=== PATIENT | male | born 1975 | race Caucasian/White ===

== ENCOUNTER 2020-11-20 14:50 | Emergency (ER) | payer SELFPAY ==
[2020-11-20 16:27] LABS: ALT (SGPT) 22 U/L (8-55); AST (SGOT) 21 U/L (5-34); Albumin 3.9 g/dL (3.5-5.0); Alkaline Phosphatase 72 U/L (40-110); Anion Gap 16 mmol/L (10-20); BUN (Urea Nitrogen) 13 mg/dL (8.9-20.6); Bilirubin, Total 0.6 mg/dL (0.2-1.2); Calc. Creatinine Clearance 0 mL/min (70-130); Calcium 8.6 mg/dL (7.8-10.44); Carbon Dioxide 24 mmol/L (22-29); Chloride 104 mmol/L (98-107); Globulin 2.4 g/dL (2.4-3.5); Glucose 111 mg/dL (70-105); Potassium 4.8 mmol/L (3.5-5.1); Protein, Total 6.3 g/dL (6.0-8.3); Sodium 139 mmol/L (136-145)
[2020-11-20 16:35] LABS: #Eosinphils 0.1 10x3/uL (0.0-0.5); #Monocytes 0.8 10x3/uL (0.0-1.1); #Neutrophils 9.3 10x3/uL (1.5-8.4); %Basophils 0.4 % (0.0-2.0); %Eosinophils 0.5 % (0.0-6.0); %Lymphocytes 8.8 % (18.0-47.0); %Monocytes 7.1 % (0.0-10.0); %Neutrophils 82.8 % (40.0-75.0); Hemoglobin 15.9 g/dL (13.5-17.5); Mean Corpuscular Hemoglobin 31.6 pg (27.0-33.0); Mean Corpuscular Volume 92.8 fl (81.2-95.1); Mean Platelet Volume 9.6 fl (7.4-10.4); Platelet Count 269 10x3/uL (150-450); RBC Distribution Width 12.8 % (11.5-14.5); Red Blood Cell (RBC) Count 5.03 10x6/uL (4.32-5.72); White Blood Cell (WBC) Count 11.2 10x3/uL (3.5-10.5)
[2020-11-20] MEDS ORDERED: Ibuprofen 200 MG TAB ONE (16:55)
[2020-11-20] MEDS ORDERED: Acetaminophen 500 MG TAB ONE (16:56)
[2020-11-20 19:24] LABS: Troponin I Less than 0.010 ng/mL (< 0.028)
[2020-11-20 20:11] LABS: SARS-CoV-2 NAA Rapid Test Not Detected (NotDetected)
== END 2020-11-20 20:00 | disposition home or self-care (01) ==
LOC: CSHERS 14:50
DX: R50.9 Fever, unspecified (principal); R07.9 Chest pain, unspecified; Z20.822 Contact with and (suspected) exposure to COVID-19
CPT/HCPCS: 0240U; 36415; 71045; 80053; 83605; 84484; 85025; 87040; 93005

== ENCOUNTER → 2021-11-12 | Emergency (ER) | payer MEDICARE | LOC: CSHERS 18:41 | DX: Z53.21 Procedure and treatment not carried out due to patient leaving prior to being seen by health care provider (principal) ==

== ENCOUNTER 2022-07-29 22:36 | Emergency (ER) | payer MEDICARE, SELFPAY ==
[2022-07-29] MEDS ORDERED: Ketorolac Tromethamine 30 MG/ML VIAL ONE (22:58)
[2022-07-29] MEDS ORDERED: Lorazepam 2 MG/ML VIAL ONE (22:58)
[2022-07-29 23:09] LABS: #Eosinphils 0.2 10x3/uL (0.0-0.5); #Monocytes 1.1 10x3/uL (0.0-1.1); #Neutrophils 5.8 10x3/uL (1.5-8.4); %Basophils 0.4 % (0.0-2.0); %Eosinophils 1.3 % (0.0-6.0); %Lymphocytes 37.3 % (18.0-47.0); %Monocytes 9.6 % (0.0-10.0); %Neutrophils 51.1 % (40.0-75.0); Hemoglobin 14.8 g/dL (13.5-17.5); Mean Corpuscular HGB CONC 34.2 g/dL (32.0-36.0); Mean Corpuscular Hemoglobin 31.3 pg (27.0-33.0); Mean Corpuscular Volume 91.5 fl (81.2-95.1); Mean Platelet Volume 9.3 fl (7.4-10.4); Platelet Count 301 10x3/uL (150-450); RBC Distribution Width 12.3 % (11.5-14.5); Red Blood Cell (RBC) Count 4.73 10x6/uL (4.32-5.72); White Blood Cell (WBC) Count 11.2 10x3/uL (3.5-10.5)
[2022-07-29] MEDS ORDERED: Mag-Al Plus 1200 MG/1200 MG/120 MG/30 ML UDCUP ONE (23:21)
[2022-07-29] MEDS ORDERED: Lidocaine Viscous Sol 2% 15 ml UD Cup ONE (23:21)
[2022-07-29 23:22] LABS: ALT (SGPT) 31 U/L (8-55); AST (SGOT) 29 U/L (5-34); Albumin 3.7 g/dL (3.5-5.0); Alkaline Phosphatase 68 U/L (40-110); Anion Gap 16 mmol/L (10-20); BUN (Urea Nitrogen) 14 mg/dL (8.9-20.6); Bilirubin, Total 0.6 mg/dL (0.2-1.2); Calc. Creatinine Clearance 0 mL/min (70-130); Calcium 9.6 mg/dL (7.8-10.44); Carbon Dioxide 28 mmol/L (22-29); Chloride 104 mmol/L (98-107); Estimated GFR 107; Globulin 2.3 g/dL (2.4-3.5); Glucose 133 mg/dL (70-105); Lipase 44 U/L (8-78); Potassium 5.4 mmol/L (3.5-5.1); Sodium 143 mmol/L (136-145)
[2022-07-30 02:22] LABS: Troponin I Less than 0.010 ng/mL (< 0.028)
== END 2022-07-30 02:36 | disposition home or self-care (01) ==
LOC: CSHERS 22:36
DX: R07.9 Chest pain, unspecified (principal)
CPT/HCPCS: 36415; 71045; 80053; 83690; 84484; 85025; 85379; 93005; 96374; 96375; J1885; J2060

== ENCOUNTER 2022-08-29 08:13 | Day surgery (SDC) | payer MEDICARE ==
[2022-08-26 14:16] VITALS: BMI 29.4
[2022-08-29] MEDS ORDERED: PROPOFOL 40 ML ONE (11:27)
[2022-08-29] MEDS ORDERED: Lidocaine 1% PF 5 ML VIAL ONE (11:39)
[2022-08-29] MEDS ORDERED: ePHEDrine Sulfate 50 MG/10 ML VIAL ONE (13:47)
[2022-08-29] MEDS ORDERED: PHENYLEPHRINE-NS 100 MCG/ML 10 ML SYRINGE ONE (13:49)
[2022-08-29] MEDS ORDERED: Albuterol HFA (OR) 200 PUFF INH ONE (13:52)
== END 2022-08-29 12:28 | disposition home or self-care (01) ==
LOC: CSHSDC 08:13
PROVIDERS: ATTEND Internal Medicine Gastroenterology
PROC: 0DB48ZX Excision of Esophagogastric Junction, Via Natural or Artificial Opening Endoscopic, Diagnostic (ICD-10-PCS; principal; 2022-08-29)
PROC: 0DBP8ZZ Excision of Rectum, Via Natural or Artificial Opening Endoscopic (ICD-10-PCS; 2022-08-29)
DX: K57.31 Diverticulosis of large intestine without perforation or abscess with bleeding (principal); D12.8 Benign neoplasm of rectum; K44.9 Diaphragmatic hernia without obstruction or gangrene; K21.00 Gastro-esophageal reflux disease with esophagitis, without bleeding; K64.9 Unspecified hemorrhoids; I10 Essential (primary) hypertension; F32.A Depression, unspecified; I48.91 Unspecified atrial fibrillation; Z88.5 Allergy status to narcotic agent; Z79.899 Other long term (current) drug therapy
CPT/HCPCS: 88305; J2704

== ENCOUNTER 2022-12-16 12:18 | Outpatient (CLI) | payer MEDICARE | END 2022-12-16 12:19 | disposition home or self-care (01) | LOC: CSHCT 12:18 | PROVIDERS: ATTEND Orthopaedic Surgery | DX: M25.571 Pain in right ankle and joints of right foot (principal); Z96.7 Presence of other bone and tendon implants ==

== ENCOUNTER 2024-01-26 17:02 | Emergency (ER) | payer MEDICARE ==
[2024-01-26 18:02] LABS: #Basophils 0.04 10x3/uL (0.0-0.2); #Monocytes 0.89 10x3/uL (0.0-1.1); #Neutrophils 5.24 10x3/uL (1.5-8.4); %Basophils 0.4 % (0.0-2.0); %Eosinophils 1.1 % (0.0-6.0); %Lymphocytes 32.3 % (18.0-47.0); %Monocytes 9.6 % (0.0-10.0); %Neutrophils 56.3 % (40.0-75.0); Hematocrit 40.1 % (38.8-50.0); Mean Corpuscular HGB CONC 34.9 g/dL (32.0-36.0); Mean Corpuscular Hemoglobin 31.7 pg (27.0-33.0); Mean Corpuscular Volume 90.7 fL (81.2-95.1); Mean Platelet Volume 9.9 fL (7.4-10.4); Platelet Count 218 10x3/uL (150-450); RBC Distribution Width 14.3 % (11.5-14.5); Red Blood Cell (RBC) Count 4.42 10x6/uL (4.32-5.72); White Blood Cell (WBC) Count 9.3 10x3/uL (3.5-10.5)
[2024-01-26 18:15] LABS: ALT (SGPT) 94 U/L (8-55); AST (SGOT) 224 U/L (5-34); Albumin 3.4 g/dL (3.5-5.0); Alkaline Phosphatase 87 U/L (40-110); Anion Gap 10 mmol/L (10-20); BUN (Urea Nitrogen) 18 mg/dL (8.9-20.6); Bilirubin, Total 0.3 mg/dL (0.2-1.2); Calc. Creatinine Clearance 0 mL/min (70-130); Calcium 8.6 mg/dL (7.8-10.44); Carbon Dioxide 28 mmol/L (22-29); Chloride 105 mmol/L (98-107); Estimated GFR 106; Globulin 2.2 g/dL (2.4-3.5); Glucose 77 mg/dL (70-105); Potassium 4.1 mmol/L (3.5-5.1); Protein, Total 5.6 g/dL (6.0-8.3)
[2024-01-26 18:16] LABS: Sodium 139 mmol/L (136-145)
[2024-01-26 18:20] LABS: Troponin I Less than 0.010 ng/mL (< 0.028)
[2024-01-26] MEDS ORDERED: Ketorolac Tromethamine 30 MG (1 mL) VIAL ONE (19:19)
[2024-01-26] MEDS ORDERED: Lidocaine 2% Viscous 10 mL, Alum & Magn 30 mL SSW SCH (19:30)
== END 2024-01-26 19:47 | disposition home or self-care (01) ==
LOC: CSHERS 17:02
DX: R07.89 Other chest pain (principal)
CPT/HCPCS: 71045; 80053; 84484; 85025; 93005; 96372; 99285; J1885